=== PATIENT | female | born 1965 | race Caucasian/White ===

== ENCOUNTER 2016-09-05 23:59 | Emergency (ER) | payer OTHER ==
[~2016-09-05] VITALS: Ht 157.5 cm; Wt 50.8 kg
[~2016-09-05 23:59] MED LIST: ALKA-SELTZER P1 EAC6; AMOXICILLI250 MG/51 PO; BACTRIM DS TAB1 EACH PO; BACTROBAN NASAL1 GM NASAL; BUSPAR 5 MG TABL5 M1 PO; BUSPAR15 MG PO; CIPROFLOXACIN500 M1 PO; COLACE100 MG PO; FLEXERIL PO; HYDROCODONE-APA10 ML PO; IBUPROFEN 600600 M1 PO; INDEROL; KEFLEX500 MG PO; NAPROSYN500 MG PO; NOHOMEMEDICATIONS; NORCO 5-325 TA1 EACH PO; PAXIL30 MG PO; PENICILLIN VK500 M1 PO; PREDNISONE 20 M20 MG PO; PREDNISONE 5 MG5 M1 PO; PYRIDIUM200 MG PO; VENTOLIN HFA 1818 GM INH; ZPAK PO
[2016-09-06] MEDS ORDERED: PREDNISONE 20 M20 MG PO (00:54)
== END 2016-09-06 01:43 | disposition home or self-care (01) ==
LOC: ER 23:59
DX: L23.7 Allergic contact dermatitis due to plants, except food (principal); F32.9 Major depressive disorder, single episode, unspecified; F17.210 Nicotine dependence, cigarettes, uncomplicated; F41.9 Anxiety disorder, unspecified; Z90.710 Acquired absence of both cervix and uterus

== ENCOUNTER 2016-12-28 11:14 | Emergency (ER) | payer OTHER ==
[~2016-12-28] VITALS: Ht 157.5 cm; Wt 47.6 kg
[2016-12-28 11:34] LABS: URINE BILIRUBIN NEGATIVE (Negative); URINE BLOOD NEGATIVE (Negative); URINE COLOR YELLOW; URINE GLUCOSE-RANDOM* NEGATIVE (Negative); URINE KETONES NEGATIVE (Negative); URINE NITRITE NEGATIVE (Negative); URINE PROTEIN (DIPSTICK) NEGATIVE (Negative); URINE UROBILINOGEN 0.2 E.U./dl (0.2-1.0)
[2016-12-28] MEDS ORDERED: BACTRIM DS TAB1 EACH PO (11:40)
[2016-12-28 11:43] LABS: ABSOLUTE NEUTROPHILS 11.4 thou/uL (1.4-8.2); BASOPHILS 0.3 % (0.0-2.0); EOSINOPHILS 0.8 % (0.0-3.0); HEMATOCRIT 40.7 % (37.0-47.0); HEMOGLOBIN 13.9 gm/dL (12.0-15.0); LYMPHOCYTES 18.4 % (24.0-44.0); MCH 29.3 pg (26.0-34.0); MCHC 34.1 g/dL (28.0-37.0); MCV 86.1 fL (80.0-100.0); MONOCYTES 7.5 % (1.0-8.0); PLATELET COUNT 224 thou/uL (150-400); RBC 4.72 mil/uL (4.20-5.00); RDW 12.4 % (10.5-14.5); WBC 15.7 thou/uL (4.0-11.0)
[2016-12-28 11:50] LABS: MANUAL DIFF NO
[2016-12-28 11:51] LABS: ANION GAP 13 mmol/L (7-16); BUN 19 mg/dL (7-18); CALCIUM 9.8 mg/dL (8.5-10.1); CHLORIDE 104 mmol/L (98-107); CO2 22 mmol/L (21-32); CREATININE 0.8 mg/dL (0.6-1.0); GLUCOSE 93 mg/dL (74-106); POTASSIUM 3.7 mmol/L (3.5-5.1); SODIUM 139 mmol/L (136-145)
[2016-12-28 11:57] LABS: ALBUMIN 4.3 g/dL (3.4-5.0); ALKALINE PHOSPHATASE 62 U/L (46-116); DIRECT BILIRUBIN < 0.1 mg/dL (<0.1-0.3); SGOT 29 U/L (15-37); SGPT 49 U/L (30-65); TOTAL BILIRUBIN 0.3 mg/dL (<0.1-1.0); TOTAL PROTEIN 7.8 g/dL (6.4-8.2)
[2016-12-28] MEDS ORDERED: NORCO 5-325 TA1 EACH PO (13:19)
[2016-12-28] MEDS ORDERED: SENOKOT-S1 TA1 PO (13:19)
[2016-12-28] MEDS ORDERED: CITRATE OF MAG296 ML PO (13:19)
== END 2016-12-28 13:35 | disposition home or self-care (01) ==
LOC: ER 11:14
PROVIDERS: Emergency Medicine
DX: N28.1 Cyst of kidney, acquired (principal); K59.00 Constipation, unspecified; D72.829 Elevated white blood cell count, unspecified; F41.9 Anxiety disorder, unspecified; F32.9 Major depressive disorder, single episode, unspecified; F17.210 Nicotine dependence, cigarettes, uncomplicated; F15.10 Other stimulant abuse, uncomplicated; F10.99 Alcohol use, unspecified with unspecified alcohol-induced disorder; Z90.710 Acquired absence of both cervix and uterus

== ENCOUNTER 2017-01-05 09:42 | Emergency (ER) | payer OTHER | END 2017-01-05 20:14 | disposition home or self-care (01) | LOC: ER 09:42 | DX: R10.84 Generalized abdominal pain (principal); F32.9 Major depressive disorder, single episode, unspecified; F41.9 Anxiety disorder, unspecified; F17.210 Nicotine dependence, cigarettes, uncomplicated; Z90.710 Acquired absence of both cervix and uterus ==

== ENCOUNTER 2017-01-06 01:11 | Emergency (ER) | payer OTHER ==
[~2017-01-06] VITALS: Ht 157.5 cm; Wt 49.9 kg
[~2017-01-06 01:11] MED LIST changes: +CITRATE OF MAG296 ML PO; +SENOKOT-S1 TA1 PO
[2017-01-06] MEDS ORDERED: SENOKOT-S1 TA1 PO (01:26)
[2017-01-06] MEDS ORDERED: BENTYL 10 MG CA10 M1 PO (01:26)
[2017-01-06] MEDS ORDERED: NORCO 5-325 TA1 EACH PO (01:26)
[2017-01-06] MEDS ORDERED: REGLAN 10 MG TA10 MG PO (01:27)
[2017-01-06 01:53] LABS: URINE BILIRUBIN NEGATIVE (Negative); URINE BLOOD 3+ (Negative); URINE COLOR YELLOW; URINE GLUCOSE-RANDOM* NEGATIVE (Negative); URINE KETONES NEGATIVE (Negative); URINE LEUKOCYTES-REFLEX 1+ (Negative); URINE PROTEIN (DIPSTICK) TRACE (Negative); URINE UROBILINOGEN 0.2 E.U./dl (0.2-1.0)
[2017-01-06 02:01] LABS: ABSOLUTE NEUTROPHILS 4.6 thou/uL (1.4-8.2); BASOPHILS 0.6 % (0.0-2.0); EOSINOPHILS 1.7 % (0.0-3.0); HEMATOCRIT 36.5 % (37.0-47.0); HEMOGLOBIN 12.7 gm/dL (12.0-15.0); LYMPHOCYTES 32.1 % (24.0-44.0); MCH 29.6 pg (26.0-34.0); MCHC 34.7 g/dL (28.0-37.0); MCV 85.4 fL (80.0-100.0); MONOCYTES 11.2 % (1.0-8.0); PLATELET COUNT 247 thou/uL (150-400); POLYS 54.4 % (36.0-66.0); RBC 4.27 mil/uL (4.20-5.00); RDW 12.4 % (10.5-14.5); WBC 8.5 thou/uL (4.0-11.0)
[2017-01-06 02:04] LABS: MANUAL DIFF NO
[2017-01-06 02:05] LABS: AMP/METHAMP POSITIVE (Negative); BARBITURATES Negative (Negative); BENZODIAZEPINES Negative (Negative); COCAINE Negative (Negative); METHADONE Negative (Negative); OPIATES Negative (Negative); PCP Negative (Negative); THC POSITIVE (Negative)
[2017-01-06 02:08] LABS: SQUAMOUS >10 Many /LPF (0-3)
[2017-01-06 02:09] LABS: AMORPHOUS PHOSPHATES Moderate /LPF (None Seen); CASTS None Seen /LPF (None Seen); CRYSTALS None Seen /LPF (None Seen); URINE RBC 3-10 Few /HPF (0-2); URINE WBC-REFLEX 0-5 Rare /HPF (0-5)
[2017-01-06 02:09] LABS: CALCIUM 9.2 mg/dL (8.5-10.1); CREATININE 0.8 mg/dL (0.6-1.0); POTASSIUM 3.7 mmol/L (3.5-5.1)
[2017-01-06 02:14] LABS: ALBUMIN 3.5 g/dL (3.4-5.0); TOTAL BILIRUBIN 0.5 mg/dL (<0.1-1.0); TOTAL PROTEIN 7.5 g/dL (6.4-8.2)
== END 2017-01-06 02:40 | disposition home or self-care (01) ==
LOC: ER 01:11
PROVIDERS: Emergency Medicine
DX: R10.12 Left upper quadrant pain (principal); R14.0 Abdominal distension (gaseous); F15.10 Other stimulant abuse, uncomplicated; F32.9 Major depressive disorder, single episode, unspecified; F41.9 Anxiety disorder, unspecified; F17.210 Nicotine dependence, cigarettes, uncomplicated; F10.99 Alcohol use, unspecified with unspecified alcohol-induced disorder; Z90.710 Acquired absence of both cervix and uterus

== ENCOUNTER 2018-05-20 10:00 | Emergency (ER) | payer OTHER ==
[~2018-05-20] VITALS: Ht 157.5 cm; Wt 49.9 kg
[~2018-05-20 10:00] MED LIST changes: +BENTYL 10 MG CA10 M1 PO; +REGLAN 10 MG TA10 MG PO
[2018-05-20 11:05] LABS: HEMOGLOBIN 14.5 gm/dL (12.0-15.0); MCH 29.6 pg (26.0-34.0); MCHC 34.7 g/dL (28.0-37.0); MCV 85.5 fL (80.0-100.0); PLATELET COUNT 230 thou/uL (150-400); RBC 4.91 mil/uL (4.20-5.00); RDW 13.1 % (10.5-14.5); WBC 6.6 thou/uL (4.0-11.0)
[2018-05-20 11:18] LABS: CALCIUM 9.4 mg/dL (8.5-10.1); CREATININE 0.6 mg/dL (0.6-1.0)
[2018-05-20 11:19] LABS: POTASSIUM 4.7 mmol/L (3.5-5.1)
[2018-05-20 12:05] LABS: ABSOLUTE NEUTROPHILS 3.7 thou/uL (1.4-8.2); ATYPICAL LYMPHS 1 %
[2018-05-20] MEDS ORDERED: MEDROLDOSEPACK PO (12:48)
[2018-05-20] MEDS ORDERED: VENTOLIN HFA 1818 GM INH (12:48)
[2018-05-20] MEDS ORDERED: CLARITIN-D 121 EAC1 PO (12:48)
[2018-05-20] MEDS ORDERED: TESSALON PERLE100 MG PO (12:48)
[2018-05-20 13:14] VITALS: BP 117/58
--- NOTE | 2018-05-21 07:56 | EKG ---
[address] [address] ELECTROCARDIOGRAM REPORT Name: EL MEZA Room #: DEP [facility]#: [id number] Admission: 05/20/18 Attend Phys: Discharge: 05/20/18 Date of : 69 Report #: [id number] THIS REPORT FOR: //name// [facility] ED Test Date: 2018-05-20 Test Time: 10:15:57 Pat Name: EL MEZA Department: Room: Gender: F Payment Rep: JACKIE : [id number] Requested By: Heidi Butcher Order Number: [id number] MD: Catarino Staples Measurements Intervals Brilliant Rate: 112 P: 80 AK: 139 QRS: 83 QRSD: 92 T: 67 QT: 344 QTc: 470 Interpretive Statements Sinus tachycardia Compared to ECG 07/05/2015 00:15:50 No significant changes Electronically Signed On 05-21-2018 7:56:17 HOME CARE SCHEDULER by Catarino Staples [email or web address] <ELECTRONICALLY SIGNED> By: Catarino Staples MD 05/21/18 [id number] Catarino Staples MD /[email or web address]
== END 2018-05-20 13:14 | disposition home or self-care (01) ==
LOC: ER 10:00
PROVIDERS: Nurse Practitioner Family
DX: J40 Bronchitis, not specified as acute or chronic (principal); J06.9 Acute upper respiratory infection, unspecified; F17.210 Nicotine dependence, cigarettes, uncomplicated; F32.9 Major depressive disorder, single episode, unspecified; F41.9 Anxiety disorder, unspecified; Z90.710 Acquired absence of both cervix and uterus

== ENCOUNTER 2021-01-21 12:43 | Emergency (ER) | payer OTHER ==
[~2021-01-21] VITALS: Ht 157.5 cm; Wt 49.9 kg
[~2021-01-21 12:43] MED LIST changes: +CLARITIN-D 121 EAC1 PO; +MEDROLDOSEPACK PO; +TESSALON PERLE100 MG PO
[2021-01-21 12:51] VITALS: BP 103/60
== END 2021-01-21 13:25 | disposition home or self-care (01) ==
LOC: ER 12:43
DX: S91.012A Laceration without foreign body, left ankle, initial encounter (principal); F17.210 Nicotine dependence, cigarettes, uncomplicated; F41.9 Anxiety disorder, unspecified; F32.9 Major depressive disorder, single episode, unspecified; Z90.710 Acquired absence of both cervix and uterus; W20.8XXA Other cause of strike by thrown, projected or falling object, initial encounter; Y93.89 Activity, other specified; Y92.89 Other specified places as the place of occurrence of the external cause; Y99.0 Civilian activity done for income or pay